=== PATIENT | female | born 1960 | race Caucasian/White ===

== ENCOUNTER → 2018-04-27 | Outpatient (CLI) | payer BC | END | disposition home or self-care (01) | LOC: LAB SHORT 12:16 → PLD 12:16 | DX: D04.61 Carcinoma in situ of skin of right upper limb, including shoulder (principal) | CPT/HCPCS: 88305 ==

== ENCOUNTER → 2018-11-07 | Outpatient (CLI) | payer BC | END | disposition home or self-care (01) | LOC: PLD 10:13 → LAB SHORT 10:13 | DX: D48.5 Neoplasm of uncertain behavior of skin (principal) | CPT/HCPCS: 88305 ==

== ENCOUNTER → 2018-11-25 | Outpatient (CLI) | payer BC ==
[~2018-11-25] MED LIST: ACYCLOVIR PO; Advil200 M1 PO; CALCIUM PO; ERGO400 PO; FISH OIL PO; Hair, Skin & N1 EACH PO
[2018-11-29 15:08] LABS: HPV 16 Negative (Negative); HPV 18 Negative (Negative); HPV OTHER HR TYPES Negative (Negative)
== END | disposition home or self-care (01) ==
LOC: LAB 08:56 → LAB SHORT 08:56
PROVIDERS: Nurse Practitioner Women's Health
DX: Z12.4 Encounter for screening for malignant neoplasm of cervix (principal)
CPT/HCPCS: 87624; G0123

== ENCOUNTER → 2018-11-29 | Outpatient (CLI) | payer BC | END | disposition home or self-care (01) | LOC: LAB 17:09 → LAB SHORT 17:09 | DX: D25.1 Intramural leiomyoma of uterus (principal); N85.2 Hypertrophy of uterus | CPT/HCPCS: 88305 ==

== ENCOUNTER → 2018-12-30 | Outpatient (CLI) | payer BC ==
[2018-12-30 08:16] LABS: Bilirubin, Urine Neg (Neg); Blood, Urine Neg (Neg); Glucose Qualitative, Urine Neg (Neg); Ketones, Urine Neg (Neg); Leukocyte Esterase, Urine Neg (Neg); Nitrite, Urine Neg (Neg); Protein, Urine Neg (Neg); Specific Gravity, Urine 1.015 (1.003-1.022); Urobilinogen, Urine NORM (Normal)
[2018-12-30 08:28] LABS: Appearance, Urine Clear (Clear); Color, Urine Yellow (P-Yellow)
== END | disposition home or self-care (01) ==
LOC: LAB SHORT 07:40 → LAB 07:40 → LAB FUT 12-28 17:05
PROVIDERS: Obstetrics & Gynecology Gynecology
DX: Z01.812 Encounter for preprocedural laboratory examination (principal); N92.0 Excessive and frequent menstruation with regular cycle
CPT/HCPCS: 81003

== ENCOUNTER 2019-01-05 05:56 | Inpatient (IN) | payer BC ==
[~2019-01-05] VITALS: Ht 170.2 cm; Wt 67.1 kg
--- NOTE | 2019-01-05 06:25 | NUR ---
History, Chart, Medications and Allergies reviewed before start of procedure. Lungs clear T/O to Auscultation.
--- NOTE | 2019-01-05 10:32 | NUR ---
PT ARRIVED TO ROOM 210 FROM PACU PT IS S/P JASON PT REPORTS MIN PAIN OFFERED KPAD PT DECLINED STATED SHE HAD SOME NAUSEA BUT IT IS BETTER REPORTS A SORE THROAT ICE CHIPS AND WATER GIVEN TO START IF SORE THROAT DOES NOT IMROVE WILL ORDER CEPACOL LOZENGES ORIENTED TO ROOM
--- NOTE | 2019-01-05 11:20 | NUR ---
PT TRIED TO SIT UP IN BED DECREASED B/P BECAME COOL PT STATED SHE FELT LIKE SHE WAS GOING TO THROW UP WANTING TO SIT UP FOR THAT PUT PT BACK FLAT STARTED BOLUS DR PEREZ CALLED IN OR [facility] ALLAQUITA ORDERED ZOFRAN GIVEN EARLIER WILL GIVEN PHENRGAN ALSO
[2019-01-05 12:07] LABS: Hematocrit 33.8 % (33.0-51.0); Hemoglobin 11.5 g/dL (11.5-16.0)
--- NOTE | 2019-01-05 12:40 | NUR ---
dr cooper by to see pt will order reglan for nausea
--- NOTE | 2019-01-05 13:52 | NUR ---
pt stated she feels flushed cold wet washcloth placed on forehead pt stated that pain is worse worried about taking the pain meds due to n/v discussed with pt she needs to have some pain meds for this type of surg pt has not used yet
[2019-01-05 15:57] LABS: BASOPHILS ABSOLUTE AUTO 0.05 K/mm3 (0.00-0.23); BASOPHILS PERCENT AUTO 0 % (0-2); EOSINOPHILS ABSOLUTE AUTO 0.01 K/mm3 (0.00-0.68); EOSINOPHILS PERCENT AUTO 0 % (0-6); Hematocrit 31.3 % (33.0-51.0); Hemoglobin 10.8 g/dL (11.5-16.0); IMMATURE GRAN ABSOLUTE AUTO 0.17 K/mm3 (0.00-0.10); IMMATURE GRAN PERCENT AUTO 1 % (0-1); LYMPHOCYTES ABSOLUTE AUTO 0.86 K/mm3 (0.84-5.20); LYMPHOCYTES PERCENT AUTO 4 % (21-46); MONOCYTES ABSOLUTE AUTO 1.03 K/mm3 (0.16-1.47); MONOCYTES PERCENT AUTO 5 % (4-13); Mean Corpuscular HGB 33.5 pg (26.0-34.0); Mean Corpuscular HGB Conc 34.5 g/dL (31.5-36.5); Mean Corpuscular Volume 97 fL (80-100); Mean Platelet Volume 10.2 fL (9.1-12.4); NEUTROPHILS ABSOLUTE AUTO 18.96 K/mm3 (1.96-9.15); NEUTROPHILS PERCENT AUTO 90 % (41-73); Platelet Count 370 K/mm3 (150-400); RDW Coefficient Variation 13.9 % (11.7-14.2); RDW Standard Deviation 49.3 fL (35.1-46.3); Red Blood Cell Count 3.22 M/mm3 (3.80-5.20); White Blood Cell Count 21.08 K/mm3 (4.00-11.30)
--- NOTE | 2019-01-05 15:59 | NUR ---
PT AWAKE STATED SHE FEELS HEART BURN WANTED TO DRINK SOMETHING
--- NOTE | 2019-01-05 16:03 | NUR ---
DR PEREZ CALLED UPDATE GIVEN
--- NOTE | 2019-01-05 17:37 | NUR ---
OFFERED PT CL DIET WILL CONT PT DID ANTWAN ENSURE EARLIER ALSO OFFERED TUMS BUT DECLINED
[2019-01-06 04:38] LABS: BASOPHILS ABSOLUTE AUTO 0.02 K/mm3 (0.00-0.23); BASOPHILS PERCENT AUTO 0 % (0-2); EOSINOPHILS PERCENT AUTO 0 % (0-6); Hematocrit 24.8 % (33.0-51.0); Hemoglobin 8.3 g/dL (11.5-16.0); IMMATURE GRAN ABSOLUTE AUTO 0.08 K/mm3 (0.00-0.10); IMMATURE GRAN PERCENT AUTO 1 % (0-1); LYMPHOCYTES ABSOLUTE AUTO 1.92 K/mm3 (0.84-5.20); LYMPHOCYTES PERCENT AUTO 15 % (21-46); MONOCYTES ABSOLUTE AUTO 1.48 K/mm3 (0.16-1.47); MONOCYTES PERCENT AUTO 11 % (4-13); Mean Corpuscular HGB 33.6 pg (26.0-34.0); Mean Corpuscular HGB Conc 33.5 g/dL (31.5-36.5); Mean Platelet Volume 10.1 fL (9.1-12.4); NEUTROPHILS ABSOLUTE AUTO 9.64 K/mm3 (1.96-9.15); NEUTROPHILS PERCENT AUTO 73 % (41-73); Platelet Count 357 K/mm3 (150-400); RDW Coefficient Variation 14.2 % (11.7-14.2); RDW Standard Deviation 51.7 fL (35.1-46.3); Red Blood Cell Count 2.47 M/mm3 (3.80-5.20); White Blood Cell Count 13.14 K/mm3 (4.00-11.30)
[2019-01-06 04:39] LABS: Mean Corpuscular Volume 100 fL (80-100)
--- NOTE | 2019-01-06 07:17 | NUR ---
SHIFT SUMMARY PT IS POD 1 OPEN TOTAL ABD HYSTER. HEMOGLOBIN DROPPED TWO POINTS THIS MORNING BUT HER BP HAS IMPROVED THIS MORNING UP TO WNL AND SHE HAD AN ADEQUATE AMOUNT OUT FROM HER CATHETER. PT ONLY USED HER MS LINOTYPIST VERY EARLY IN THE NIGHT. SHE SAID SHE WAS COMFORTABLE AT REST. PT IS TAKING PO FLUIDS WITH MILD NAUSEA; SHE REPORTS NAUSEA AT BASELINE WITH EVEN BRUSHING HER TEETH. REPORT PASSED TO ONCOMING SHIFT.
--- NOTE | 2019-01-06 10:40 | NUR ---
PATIENT UP TO SIT TO SIDE OF BED, BECAME VERY DIZZY. BACK TO BED AND SLOWLY RAISED HOB. DENIES INCREASE IN PAIN OR NAUSEA. WILL ATTEMPT UP TO CHAIR IN APPROX AN HOUR. FC D/C'D AT THIS TIME.
--- NOTE | 2019-01-06 12:06 | NUR ---
UP TO BSC COMMODE, VOIDED 200ML W/O DIFFICULTY. UP TO RECLINER CHAIR FOR LUNCH. MEDICATED WITH NAPROXYN AT THIS TIME. CONT TO MONITOR.
--- NOTE | 2019-01-06 18:10 | NUR ---
SHIFT SUMMARY PATIENT PROGRESSING WELL THIS SHIFT. STATES PAIN TOLERABLE WITH NAPROSYN. TOLERATING REG DIET. UP TO AMBULATE IN MELVIN AND UP IN RECLINER CHAIR T/O AFTERNOON. VERY SCANT VAGINAL BLEEDING. NO C/O AT THIS TIME.
--- NOTE | 2019-01-06 18:50 | NUR ---
recvd report from previous shift rn toan, pt lyingin bed, a/0 x4, pleasant/cooperative, call light within reach, bed rails up x 2, bed in lowest position
--- NOTE | 2019-01-07 05:56 | NUR ---
shift summary: vss, no acute changes, slight sinus tachycardia per pt's baseline with heart rate between 100-115. pt reports feeling slightly lightheaded when standing, but "better than today". provider aware. pt tolerated diet untake with no n/v, urine output >500 ml this shift, no BM, passing flatus. angie pad with scant blood. transverse pelvis incision wnl, dried shadowing on surgical dressing, no new shadowing.
--- NOTE | 2019-01-07 12:42 | NUR ---
DISCHARGE SUMMARY PT A&OX4, VSS, LEFT FLOOR WITH , TO GO HOME, WITH ALL PERSONAL POSSESSIONS, INCLUDING DISCHARGE SUMMARY. DISCHARGE INSTRUCTIONS PROVIDED. PT REPORTED UNDERSTANDING THOSE INSTRUCTIONS INCLUDING PELVIC REST, NO LIFTING >15 LBS, NO DRIVING 2 WKS, FU DOCTOR 2 WKS, SHOWER OK, NO TUB/JACUZZI, LEAVE STERIS IN PLACE 7-[address] VANESSA. WU JENSEN.
== END 2019-01-07 11:45 | disposition home or self-care (01) | DRG 742 ==
LOC: SURS 05:56 → PRE IP 07:30 → SURS 10:23
PROVIDERS: ADMIT Obstetrics & Gynecology Gynecology
PROC: 0UT90ZZ Resection of Uterus, Open Approach (ICD-10-PCS; principal; 2019-01-05 07:30)
PROC: 0UT70ZZ Resection of Bilateral Fallopian Tubes, Open Approach (ICD-10-PCS; 2019-01-05 07:30)
DX: D25.1 Intramural leiomyoma of uterus (principal); D62 Acute posthemorrhagic anemia; N85.2 Hypertrophy of uterus; N92.0 Excessive and frequent menstruation with regular cycle
CPT/HCPCS: 36415; 85014; 85018; 85025; 88307; J0690; J1100; J1885; J2250; J2270; J2405; J2550; J2765; J3010; J7120

== ENCOUNTER → 2019-03-02 | Outpatient (CLI) | payer BC | END | disposition home or self-care (01) | LOC: PLD 10:03 → LAB SHORT 10:03 | DX: C44.311 Basal cell carcinoma of skin of nose (principal) | CPT/HCPCS: 88305 ==

== ENCOUNTER → 2019-06-13 | Outpatient (CLI) | payer BC | END | disposition home or self-care (01) | LOC: LAB SHORT 10:08 → PLD 10:08 | DX: L90.5 Scar conditions and fibrosis of skin (principal) | CPT/HCPCS: 88305 ==

== ENCOUNTER → 2019-08-26 | Outpatient (CLI) | payer BC ==
[2019-08-26 14:16] LABS: Stool Occult Bld Immuno 1 Negative (NEGATIVE); Stool Occult Bld Immuno 2 Positive (NEGATIVE)
== END | disposition home or self-care (01) ==
LOC: LAB SHORT 08:16 → OLS 08:16 → LAB FUT 03-29 17:15
PROVIDERS: Internal Medicine Gastroenterology
DX: K57.90 Diverticulosis of intestine, part unspecified, without perforation or abscess without bleeding (principal); Z86.010 Personal history of colon polyps
CPT/HCPCS: 82274

== ENCOUNTER → 2019-12-12 | Outpatient (CLI) | payer BC | END | disposition home or self-care (01) | LOC: PLD 12:40 → LAB SHORT 12:40 | DX: L57.0 Actinic keratosis (principal) | CPT/HCPCS: 88305 ==

== ENCOUNTER 2020-01-08 07:46 | Day surgery (SDC) | payer BC ==
[~2020-01-08] VITALS: Ht 170.2 cm; Wt 70.3 kg
[~2020-01-08 07:46] MED LIST changes: +ACYC200 PO; +ADVIL200 MG PO; +CAL-GEST200 MG; +Fish Oil 10001000 MG PO; +MULTIPLE VITAM1 EACH PO; +Vitamin D2000 UNIT; +Vivelle-Dot1 EACH TD
== END 2020-01-08 10:28 | disposition home or self-care (01) ==
LOC: ORSCSDS 07:46
PROVIDERS: Internal Medicine Gastroenterology
PROC: 0DBK8ZX Excision of Ascending Colon, Via Natural or Artificial Opening Endoscopic, Diagnostic (ICD-10-PCS; principal; 2020-01-08 09:00)
PROC: 0DB68ZX Excision of Stomach, Via Natural or Artificial Opening Endoscopic, Diagnostic (ICD-10-PCS; principal; 2020-01-08 09:00)
PROC: 0DBE8ZX Excision of Large Intestine, Via Natural or Artificial Opening Endoscopic, Diagnostic (ICD-10-PCS; principal; 2020-01-08 09:00)
PROC: 0DB48ZX Excision of Esophagogastric Junction, Via Natural or Artificial Opening Endoscopic, Diagnostic (ICD-10-PCS; principal; 2020-01-08 09:00)
DX: R19.5 Other fecal abnormalities (principal); Z86.010 Personal history of colon polyps; D12.2 Benign neoplasm of ascending colon; R19.4 Change in bowel habit; K57.30 Diverticulosis of large intestine without perforation or abscess without bleeding; K29.70 Gastritis, unspecified, without bleeding; Z79.899 Other long term (current) drug therapy
CPT/HCPCS: 87081; 88305; 88342; J0330; J0461; J2405; J2704; J7120

== ENCOUNTER → 2020-01-12 | Outpatient (CLI) | payer BC | END | disposition home or self-care (01) | LOC: OLS 14:08 → LAB SHORT 14:08 | DX: K29.50 Unspecified chronic gastritis without bleeding (principal); B96.81 Helicobacter pylori [H. pylori] as the cause of diseases classified elsewhere | CPT/HCPCS: 87338 ==

== ENCOUNTER → 2020-02-20 | Outpatient (CLI) | payer BC ==
[2020-02-21 14:56] LABS: Stool Occult Bld Immuno 1 Negative (NEGATIVE)
== END | disposition home or self-care (01) ==
LOC: LAB SHORT 08:37 → LAB 08:37
PROVIDERS: Internal Medicine Gastroenterology
DX: R19.5 Other fecal abnormalities (principal); K29.51 Unspecified chronic gastritis with bleeding; B96.81 Helicobacter pylori [H. pylori] as the cause of diseases classified elsewhere
CPT/HCPCS: 82274

== ENCOUNTER → 2020-02-21 | Outpatient (CLI) | payer BC | END | disposition home or self-care (01) | LOC: LAB 08:32 → LAB SHORT 08:32 → LAB FUT 01-08 15:45 | DX: R19.5 Other fecal abnormalities (principal); B96.81 Helicobacter pylori [H. pylori] as the cause of diseases classified elsewhere | CPT/HCPCS: 87338 ==

== ENCOUNTER 2020-05-31 06:03 | Day surgery (SDC) | payer BC ==
[~2020-05-31] VITALS: Ht 170.2 cm; Wt 72.5 kg
[~2020-05-31 06:03] MED LIST changes: +IBUP200 PO; +VITAMIN D PO
--- NOTE | 2020-05-31 07:12 | NUR ---
Ambulatory in Day Surgery. Surgical site prepped with 2% Chlorhexidine cloth wipe. History, Chart, Medications and Allergies reviewed before start of procedure. Lungs clear T/O to Auscultation. Patient confirms NPO status and agrees with scheduled surgery. Pre-Op teaching done. Pt verbalizes understanding. Patient States Post-Procedure ride home has been arranged.
--- NOTE | 2020-05-31 12:37 | NUR ---
Discharge instructions reviewed with patient. Patient verbalizes understanding. Copy given to patient to take home. Dressing to procedure site clean, dry, intact with no visible drainage, swelling, erythema or bruising noted. Discharged via wheelchair to private car for ride home.
--- NOTE | 2020-05-31 16:31 | NUR ---
05/31/20 1631 Ellen Aguayo VERIFIED: EDIT CHART.
== END 2020-05-31 12:32 | disposition home or self-care (01) ==
LOC: ORSCMMR 06:03 → ORD 07:30 → ORSCMMR 12:32
PROVIDERS: Surgery
PROC: 0DNU4ZZ Release Omentum, Percutaneous Endoscopic Approach (ICD-10-PCS; principal; 2020-05-31 07:30)
PROC: 8E0W4CZ Robotic Assisted Procedure of Trunk Region, Percutaneous Endoscopic Approach (ICD-10-PCS; principal; 2020-05-31 07:30)
PROC: 0YU54JZ Supplement Right Inguinal Region with Synthetic Substitute, Percutaneous Endoscopic Approach (ICD-10-PCS; principal; 2020-05-31 07:30)
DX: K40.90 Unilateral inguinal hernia, without obstruction or gangrene, not specified as recurrent (principal); K66.0 Peritoneal adhesions (postprocedural) (postinfection); Z79.899 Other long term (current) drug therapy
CPT/HCPCS: 49650; 49329; S2900; A9270-GY; C1781; J0690; J1100; J1885; J2250; J2370; J2405; J2704; J3010; J7120

== ENCOUNTER → 2020-10-21 | Outpatient (CLI) | payer BC | END | disposition home or self-care (01) | LOC: LAB SHORT 15:00 → PLD 15:00 | DX: L57.0 Actinic keratosis (principal) | CPT/HCPCS: 88305 ==

== ENCOUNTER 2021-10-27 10:39 | Day surgery (SDC) | payer BC ==
[~2021-10-27] VITALS: Ht 170.2 cm; Wt 75.0 kg
[~2021-10-27 10:39] MED LIST changes: +Calcium Acetat667 MG PO
--- NOTE | 2021-10-27 15:21 | NUR ---
PT AND HER NOT HAPPY ABOUT PROCEDURE RESULTS AND MISSED CALL FROM DR HESS. DR HESS NOTIFIED AND ON WAY TO [facility] TO SEE PT
--- NOTE | 2021-10-28 14:57 | NUR ---
10/28/21 1457 Ellen Aguayo VERIFICATIONS: EDIT CHART.
== END 2021-10-28 22:48 | disposition home or self-care (01) ==
LOC: ORSCMMR 10:39 → ORD 12:00 → ORSCMMR 10-28 22:48
PROVIDERS: Surgery
PROC: 0JB80ZZ Excision of Abdomen Subcutaneous Tissue and Fascia, Open Approach (ICD-10-PCS; principal; 2021-10-27 12:00)
DX: R22.2 Localized swelling, mass and lump, trunk (principal)
CPT/HCPCS: J0690; J1100; J1885; J2250; J2405; J2704; J3010; J7120